=== PATIENT | male | born 1985 | race Caucasian/White ===

== ENCOUNTER 2018-10-23 16:36 | Observation (INO) ==
[2018-10-23] MEDS ORDERED: 0.9 % Sodium Chloride 1,000 ML IVC ONE (18:25)
--- NOTE | 2018-10-23 18:37 | Emergency Department Note ---
Disposition Clinical Impression: Transaminitis Urinary tract infection Qualifiers: Urinary tract infection type: acute cystitis Hematuria presence: with hematuria Qualified Code(s): N30.01 - Acute cystitis with hematuria Disposition: Admitted As Inpatient Condition: Fair Referrals: Alex Mar MD [Primary Care Provider] - Forms: ED Satisfaction Letter, Work/School Release Time of Disposition: 22:28 General Adult HPI - General Chief complaint: ED General Medical Stated complaint: Abrasions,hematuria,fall Time Seen by Provider: 10/23/18 18:03 Source: patient Mode of arrival: wheelchair Limitations: no limitations Nursing Notes Reviewed: Yes Vital Signs Reviewed: Yes - History of Present Illness HPI Narrative: Patient is a 32-year-old male with a past medical history of 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 She states is also having pain in the bilateral flanks. Concern that he has urinary tract infection. The patient states that he also had a fall 1 week ago when he is getting into her vehicle when he fell forward onto his right side and has pain in his right lateral chest wall as well as his lower rib cage. He denies any loss of consciousness. Denies chest pain or shortness of breath. Denies any abdominal pain. The patient states that he has also had penile discharge and his girlfriend was recently in town and they are having unprotected sex. Pain Scale: 8 - Related Data Home Medications Medication Instructions Recorded Confirmed Citalopram [CeleXA] 20 mg PO DAILY 04/20/18 04/20/18 Cyclobenzaprine [Flexeril] 10 mg PO TID PRN 04/20/18 04/20/18 Diphenhydramine HCl [Nighttime 50 mg PO HS PRN 04/20/18 04/20/18 Sleep Aid] Enoxaparin [Lovenox] 40 mg SQ Q12HR 04/20/18 04/20/18 Gabapentin [Neurontin] 600 mg PO TID 04/20/18 04/20/18 Ibuprofen [Ibu] 800 mg PO TID PRN 04/20/18 04/20/18 Oxybutynin Chloride [Ditropan Xl] 5 mg PO DAILY 04/20/18 04/20/18 Sennosides/Docusate Sodium [Senna 1 tab PO HS PRN 04/20/18 04/20/18 Plus] Sildenafil Citrate [Revatio] 20 - 40 mg PO DAILY 04/20/18 04/20/18 risperiDONE [RisperDAL] 1 mg PO QAM 04/20/18 04/20/18 risperiDONE [RisperDAL] 2 mg PO HS 04/20/18 04/20/18 Enoxaparin [Lovenox] 40 mg SQ DAILY 07/10/18 07/10/18 Previous Rx's Medication Instructions Recorded Silvasorb 1 appl TP DAILY tube 04/22/18 Citalopram [CeleXA] 40 mg PO DAILY tablet 05/02/18 OxyCODONE ER (12 HR) [OxyCONTIN] 20 mg PO Q12HR 3 Days #6 tab.er.12h 05/02/18 buPROPion HCl [Zyban] 300 mg PO DAILY #0 05/02/18 Allergies Allergy/AdvReac Type Severity Reaction Status Date / Time No Known Allergies Allergy Verified 04/20/18 10:09 All systems ED: reviewed and negative except as stated. Review of Systems: As Per HPI Constitutional: Reports: chills. Denies: fever, weakness ENT ED: Denies: ear pain, throat pain, congestion, dysphagia Cardiovascular: Denies: chest pain, palpitations, dyspnea on exertion, edema, syncope Respiratory: Denies: cough, dyspnea, wheezes, hemoptysis, sputum production Gastrointestinal: Reports: nausea. Denies: abdominal pain, vomiting, diarrhea, constipation, hematemesis, melena, hematochezia Genitourinary: Reports: dysuria, frequency, discharge. Denies: urgency, hematuria Past Medical History - Past Medical History Attestation: Yes The following information was validated with the patient. Medical history: Reports: asthma, DVT, hepatitis, kidney stones Surgical history: Reports: no surgical history Psychiatric history: Reports: depression, previous psychiatric hospitalization - Social History Smoking Status: Current every day smoker Smokeless Tobacco Status: No Alcohol use: Reports: none Drug use: Reports: none Physical Exam - General Limitations: no limitations - Head Head exam: atraumatic, normocephalic, normal inspection - Eye Eye exam: Present: normal appearance, PERRL, EOMI - ENT ENT exam: normal exam, normal oropharynx, mucous membranes moist - Neck Neck exam: Present: normal inspection, full ROM, trachea midline - Chest Chest inspection: Present: normal inspection, symmetric chest wall rise - Respiratory Respiratory exam: Present: normal lung sounds bilaterally. Absent: respiratory distress, wheezes, accessory muscle use - Cardiovascular Cardiovascular exam: Present: normal rhythm, tachycardia, normal heart sounds, +S1, +S2 - Abdominal Exam Abdominal exam: Present: soft, Non-Tender, normal bowel sounds. Absent: tenderness - Extremities Exam Extremities exam: Present: normal capillary refill, other (2/5 strength in the LLE and 1/5 in the RLE. Normal for patient given history. ). Absent: tenderness, pedal edema - Back Exam Back exam: Present: full ROM, CVA tenderness (R), CVA tenderness (L). Absent: paraspinal tenderness, vertebral tenderness - Neurological Exam Neurological exam: Present: alert, oriented X3 - Psychiatric Psychiatric exam: Present: normal affect, normal mood - Skin Skin exam: Present: warm, dry, intact, normal color, other (small pea sized lump on the right cheek and on the left abdomen that is indurated and not fluctuant. Bilateral lower extremities have no obvious open wounds. Small area of erythema to the right lower ankle at the heel but no signs of ulceration. ) Course Course Narrative: Patient presented for multiple complaints including a recent fall with right- sided pain as well as right ankle injury concern as well as urinary symptoms. After undergoing workup patient was found to have elevated liver enzymes which she then went underwent a CT scan of the abdomen and pelvis for further evaluation of abdominal pathology and that was unremarkable. Patient was also found to have a urinary tract infection. He started on Rocephin in the emergency department. Further discussions with the patient he states that he does have a history of hepatitis C he was told that he was no longer hepatitis C positive. I discussed the patient's case with the hospitalist on-call plan to admit him for further evaluation and treatment of his elevated liver enzymes as well as his UTI. Hospitalist, Dr. Wright agreed to accept the patient and requested that I add on a viral panel to evaluate for hepatitis. I discussed this with the patient patient agrees with plan. Vital Signs Temperature 98.8 F 10/23/18 17:11 Pulse Rate 128 10/23/18 17:11 Respiratory Rate 18 10/23/18 17:11 Blood Pressure 133/80 10/23/18 17:11 O2 Sat by Pulse Oximetry 97 10/23/18 17:11 Temperature 98.8 F 10/23/18 19:51 Pulse Rate 115 10/23/18 21:38 Respiratory Rate 18 10/23/18 19:51 Blood Pressure 140/81 10/23/18 21:38 O2 Sat by Pulse Oximetry 97 10/23/18 19:51 Oxygen Delivery Oxygen Delivery Room Air Medical Decision Making - Medical Records Medical records reviewed: Yes I reviewed the patient's medical records. - Lab Data Lab results reviewed: Yes I reviewed the patient's lab results. Result diagrams: 10/23/18 18:45 10/23/18 18:45 Lab Results 10/23/18 10/23/18 10/23/18 Range/Units 18:45 18:45 18:45 WBC 11.1 (4.3-11.1) K/mcL RBC 5.43 (4.19-5.50) M/mcL Hgb 15.8 (12.9-16.9) g/dL Hct 47.3 (37.5-50.1) % MCV 87.1 (83.0-100.0) fL MCH 29.1 (28.0-33.3) pg MCHC 33.4 (31.6-35.5) g/dL RDW 13.8 (11.5-14.5) % Plt Count 245 (140-400) K/mcL MPV 10.9 (9.4-12.4) fL Immature Gran % 0.5 (0-4) % Seg Neutrophils % 51.2 % Lymphocytes % 31.5 % Monocytes % 14.9 % Eosinophils % 1.3 % Basophils % 0.6 % Neutrophils # 5.7 (1.6-8.9) K/mcL Lymphocytes # 3.5 (0.6-4.6) K/mcL Monocytes # 1.7 H (0.0-1.3) K/mcL Eosinophils # 0.1 (0.0-0.6) K/mcL Basophils # 0.1 (0.0-0.2) K/mcL PT (9.4-12.1) Seconds INR APTT (26.0-36.0) Seconds Sodium 138 (136-145) mEq/L Potassium 3.8 (3.5-5.1) mEq/L Chloride 105 (98-107) mEq/L Carbon Dioxide 25 (23-29) mEq/L BUN 13 (6-20) mg/dL Creatinine 0.99 (0.70-1.30) mg/dL Est GFR ( Amer) > 60 (> 60) Est GFR (Non-Af Amer) > 60 (> 60) BUN/Creatinine Ratio 13 (6-26) Glucose 113 H (70-105) mg/dL Calculated Osmolality 287 (280-300) Lactic Acid 2.1 (0.5-2.2) mmol/L Calcium 9.6 (8.6-10.3) mg/dL Phosphorus 2.7 (2.7-4.5) mg/dL Magnesium 2.1 (1.6-2.6) mg/dL Total Bilirubin 3.4 H (0.3-1.0) mg/dL Direct Bilirubin 2.3 H (0.0-0.2) mg/dL Indirect Bilirubin 1.1 (0.0-1.2) mg/dL AST 1093 H (13-39) Units/L ALT > 500 H (7-52) Units/L Alkaline Phosphatase 170 H (34-104) Units/L Troponin I < 0.03 (< 0.04) ng/mL Serum Total Protein 7.6 (6.4-8.9) g/dL Albumin 4.2 (3.5-5.7) g/dL Globulin 3.4 (2.4-3.5) g/dL Albumin/Globulin Ratio 1.2 (1.1-2.2) Urine Color (Yellow) Urine Clarity (Clear) Urine pH (5.0-8.0) pH Units Ur Specific [place] (1.010-1.025) Urine Protein (Neg-Trace) mg/dL Urine Glucose (UA) (Normal) mg/dL Urine Ketones (Negative) mg/dL Urine Blood (Negative) Urine Nitrite (Negative) Urine Bilirubin (Negative) Urine Urobilinogen (Normal) mg/dL Ur Leukocyte Esterase (Negative) Urine Microscopic RBC (0-3) per hpf Urine Microscopic WBC (0-3) per hpf Ur Squamous Epith Cells (None-Few) per lpf Urine Bacteria (None-Few) per hpf Hyaline Casts (None-Few) per lpf Ur Culture Indicated? (NO) 10/23/18 10/23/18 10/23/18 Range/Units 19:18 22:33 22:33 WBC (4.3-11.1) K/mcL RBC (4.19-5.50) M/mcL Hgb (12.9-16.9) g/dL Hct (37.5-50.1) % MCV (83.0-100.0) fL MCH (28.0-33.3) pg MCHC (31.6-35.5) g/dL RDW (11.5-14.5) % Plt Count (140-400) K/mcL MPV (9.4-12.4) fL Immature Gran % (0-4) % Seg Neutrophils % % Lymphocytes % % Monocytes % % Eosinophils % % Basophils % % Neutrophils # (1.6-8.9) K/mcL Lymphocytes # (0.6-4.6) K/mcL Monocytes # (0.0-1.3) K/mcL Eosinophils # (0.0-0.6) K/mcL Basophils # (0.0-0.2) K/mcL PT 17.6 H (9.4-12.1) Seconds INR 1.6 APTT 39.0 H (26.0-36.0) Seconds Sodium (136-145) mEq/L Potassium (3.5-5.1) mEq/L Chloride (98-107) mEq/L Carbon Dioxide (23-29) mEq/L BUN (6-20) mg/dL Creatinine (0.70-1.30) mg/dL Est GFR ( Amer) (> 60) Est GFR (Non-Af Amer) (> 60) BUN/Creatinine Ratio (6-26) Glucose (70-105) mg/dL Calculated Osmolality (280-300) Lactic Acid 1.0 (0.5-2.2) mmol/L Calcium (8.6-10.3) mg/dL Phosphorus (2.7-4.5) mg/dL Magnesium (1.6-2.6) mg/dL Total Bilirubin (0.3-1.0) mg/dL Direct Bilirubin (0.0-0.2) mg/dL Indirect Bilirubin (0.0-1.2) mg/dL AST (13-39) Units/L ALT (7-52) Units/L Alkaline Phosphatase (34-104) Units/L Troponin I (< 0.04) ng/mL Serum Total Protein (6.4-8.9) g/dL Albumin (3.5-5.7) g/dL Globulin (2.4-3.5) g/dL Albumin/Globulin Ratio (1.1-2.2) Urine Color Dark Yellow (Yellow) Urine Clarity Cloudy A (Clear) Urine pH 5.5 (5.0-8.0) pH Units Ur Specific [place] 1.019 (1.010-1.025) Urine Protein Trace (Neg-Trace) mg/dL Urine Glucose (UA) Normal (Normal) mg/dL Urine Ketones Trace H (Negative) mg/dL Urine Blood Moderate H (Negative) Urine Nitrite Positive A (Negative) Urine Bilirubin Moderate H (Negative) Urine Urobilinogen 4.0 H (Normal) mg/dL Ur Leukocyte Esterase Large H (Negative) Urine Microscopic RBC 5-15 H (0-3) per hpf Urine Microscopic WBC TNTC H (0-3) per hpf Ur Squamous Epith Cells Many H (None-Few) per lpf Urine Bacteria Many H (None-Few) per hpf Hyaline Casts None Seen (None-Few) per lpf Ur Culture Indicated? NO. A (NO) - Radiology Data Radiology results reviewed: Yes I reviewed the patient's radiology results. Chest X-Ray 10/23/18 00:00 IMPRESSION: No acute process. D/ / Nicolas Manley MD / Nicolas Manley MD Interpreting Provider: Nicolas Manley MD Ankle X-Ray 10/23/18 18:41 IMPRESSION: No acute abnormality of the ankle. D/ / Nicolas Manley MD / Nicolas Manley MD Interpreting Provider: Nicolas Manley MD Abdomen/Pelvis CT 10/23/18 20:11 IMPRESSION: 1. No acute intra-abdominal/pelvic abnormality. Normal appendix. 2. Nonspecific mild bilateral inguinal lymphadenopathy progressed since the prior exam. No evidence of body wall cellulitis or abscess. D/ / 10/23/2018 21:48:03 Ed Rose MD / [email or web address] Interpreting Provider: Ed Rose MD
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
[2018-10-23 19:10] LABS: Basophils # 0.1 K/mcL (0.0-0.2); Basophils % 0.6 %; Eosinophils # 0.1 K/mcL (0.0-0.6); Eosinophils % 1.3 %; Hematocrit 47.3 % (37.5-50.1); Hemoglobin 15.8 g/dL (12.9-16.9); Immature Granulocytes % 0.5 % (0-4); Lymphocytes # 3.5 K/mcL (0.6-4.6); Lymphocytes % 31.5 %; Mean Corpuscular HGB Conc 33.4 g/dL (31.6-35.5); Mean Corpuscular Hemoglobin 29.1 pg (28.0-33.3); Mean Corpuscular Volume 87.1 fL (83.0-100.0); Mean Platelet Volume 10.9 fL (9.4-12.4); Monocytes # 1.7 K/mcL (0.0-1.3); Monocytes % 14.9 %; Neutrophils # 5.7 K/mcL (1.6-8.9); Platelet Count 245 K/mcL (140-400); Red Blood Count 5.43 M/mcL (4.19-5.50); Red Cell Distribution Width 13.8 % (11.5-14.5); Segmented Neutrophils % 51.2 %
[2018-10-23 19:27] LABS: Troponin I < 0.03 ng/mL (< 0.04)
[2018-10-23 19:39] LABS: Bilirubin,Urine Moderate (Negative); Blood,Urine Moderate (Negative); Clarity,Urine Cloudy (Clear); Glucose,Urine (UA) Normal (Normal); Ketones,Urine Trace mg/dL (Negative); Leukocyte Esterase,Urine Large (Negative); Nitrite,Urine Positive (Negative); PH,Urine 5.5 pH Units (5.0-8.0); Protein,Urine Trace mg/dL (Neg-Trace); Specific Gravity,Urine 1.019 (1.010-1.025)
[2018-10-23 19:42] LABS: Bacteria,Urine Many per hpf (None-Few); Squamous Epithelial Cell,Urine Many per lpf (None-Few); WBC,Urine TNTC per hpf (0-3)
[2018-10-23 19:43] LABS: Color,Urine Dark Yellow (Yellow)
[2018-10-23 19:52] LABS: Alanine Aminotransferase > 500 Units/L (7-52); Alkaline Phosphatase 170 Units/L (34-104); Aspartate Amino Transferase 1093 Units/L (13-39); BUN/Creatinine Ratio 13 (6-26); Bilirubin,Direct 2.3 mg/dL (0.0-0.2); Bilirubin,Indirect 1.1 mg/dL (0.0-1.2); Bilirubin,Total 3.4 mg/dL (0.3-1.0); Blood Urea Nitrogen 13 mg/dL (6-20); Calcium 9.6 mg/dL (8.6-10.3); Carbon Dioxide 25 mEq/L (23-29); Chloride 105 mEq/L (98-107); Glucose 113 mg/dL (70-105); Magnesium 2.1 mg/dL (1.6-2.6); Osmolality,Calculated 287 (280-300); Phosphorous 2.7 mg/dL (2.7-4.5); Potassium 3.8 mEq/L (3.5-5.1); Sodium 138 mEq/L (136-145); Total Protein 7.6 g/dL (6.4-8.9); eGFR For Non-African Americans > 60 (> 60)
[2018-10-23 19:53] LABS: Albumin 4.2 g/dL (3.5-5.7); Albumin/Globulin Ratio 1.2 (1.1-2.2); Globulin 3.4 g/dL (2.4-3.5)
[2018-10-23] MEDS ORDERED: Ondansetron 4 MG/2 ML VIAL IVP ONE (19:56)
[2018-10-23] MEDS ORDERED: Ketorolac 15 MG/ML VIAL IVP ONE (19:56)
[2018-10-23] MEDS ORDERED: *HR* FentaNYL (PF) 100 MCG/2 ML VIAL IVP ONE (19:57)
[2018-10-23 20:00] LABS: Hyaline Casts,Urine None Seen per lpf (None-Few)
[2018-10-23] MEDS ORDERED: Isovue-370 500 ML INFUS..BTL IV ONE (20:11)
[2018-10-23] MEDS ORDERED: cefTRIAXone 1,000 MG in Water for inj. (sterile) 20 ML 10 ML IVP ONE (21:28)
[2018-10-23 22:58] LABS: INR 1.6; Prothrombin Time 17.6 Seconds (9.4-12.1)
[2018-10-23 23:18] LABS: Hepatitis B Surface Antigen Nonreactive (Nonreactive)
[2018-10-23 23:47] LABS: Hepatitis A Antibody IgM Nonreactive (Nonreactive); Hepatitis B Core IgM Nonreactive (Nonreactive)
[2018-10-24] MEDS ORDERED: Naloxone 0.4 MG/ML INJ IVP PRN (02:16)
[2018-10-24] MEDS: *HR* OxyCODONE/APAP 5/325 TABLET PO PRN ×4 (02:56→22:14)
--- NOTE | 2018-10-24 05:05 | Internal Med History&Physical ---
<Jaren Denton R - Last Filed: 10/24/18 06:52> Date of Encounter: 10/24/18 Time of Encounter: 04:45 Internal Medicine - H&P: HPI Chief complaint: back pain, dark urine Admitted From: Emergency Dept Plans for Post Hospital Care: Home History of present illness: Mr. 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 Presented for evaluation of back pain, abdominal pain and dark foul smelling urine worsening over the past week. Due to paraplegia is unable to evaluate for dysuria, however admits to frequent small volume voids with straight cath as well as worsening bladder spasm over the past week. Associated chills, diaphoresis, nausea without vomiting. Also endorses penile discharge for the past week, has been sexually active recently. Denies IV drug use since 2014, admits to doing a "line of cocaine" last week, denies heavy alcohol consumption. Patient states that abdominal pain is generalized, improved with eating. Lab evaluation reveals normal WBC, elevated LFTs, total and direct bilirubin. CT abdomen and pelvis without acute abnormality. UA suggestive of UTI. Denies chest pain, shortness of breath, dizziness, weakness, change in bowel, or diarrhea. Past Med Surg Social Fam HX - Past Medical History Medical history: asthma, DVT, hepatitis, kidney stones Additional medical history: spinal abcess Psychiatric history: depression, previous psychiatric hospitalization - Past Surgical History Surgical History: orthopedic, other Additional surgical history: spine surgery - Social History Smoking Status: Current every day smoker Smokeless Tobacco Status: Yes (snuff) Alcohol use: rarely Drug use: none - Family History Mother Adopted: No Family Member Ethnicity: Non- Living Status: Still Living Hx Family Cardiac Disorders: Yes Hx Family Respiratory Disorders: No Hx Family Cancer: No Hx Family GI Disorders: No Hx Family Endocrine Disorder: No Hx Family Neuromuscular Disorders: No Hx Family Neurologic Disorders: Yes Hx Family HEENT Disorders: No Hx Family Autoimmune Disorders: No Father Adopted: No Family Member Ethnicity: Non- Living Status: Hx Family Cardiac Disorders: Yes Hx Family Respiratory Disorders: No Hx Family Cancer: No Hx Family GI Disorders: No Hx Family Endocrine Disorder: Yes Hx Family Neuromuscular Disorders: No Hx Family Neurologic Disorders: No Hx Family HEENT Disorders: No Hx Family Autoimmune Disorders: No Internal Medicine - H&P: Meds Cyclobenzaprine [Flexeril] 10 mg PO TID PRN 04/20/18 [History] Diphenhydramine HCl [Nighttime Sleep Aid] 50 mg PO HS PRN 04/20/18 [History] Enoxaparin [Lovenox] 40 mg SQ Q12HR 04/20/18 [History] Ibuprofen [Ibu] 800 mg PO TID PRN 04/20/18 [History] Oxybutynin Chloride [Ditropan Xl] 5 mg PO DAILY 04/20/18 [History] Sildenafil Citrate [Revatio] 20 - 40 mg PO DAILY 04/20/18 [History] Citalopram [CeleXA] 40 mg PO DAILY tablet 05/02/18 [Rx] buPROPion HCl [Zyban] 300 mg PO DAILY #0 05/02/18 [Rx] ARIPiprazole [Abilify] 10 mg PO DAILY 10/24/18 [History] Gabapentin [Neurontin] 900 mg PO TID 10/24/18 [History] HydrOXYzine Pamoate [Vistaril] 50 mg PO 10/24/18 [History] OxyCODONE/APAP 5/325 [Percocet 5/325 MG] 1 each PO Q6HR 10/24/18 [History] Allergy/AdvReac Type Severity Reaction Status Date / Time No Known Allergies Allergy Verified 04/20/18 10:09 All Systems PM: A 10-system review of systems was performed and is negative for pertinent findings except as documented above in the HPI. - Constitutional Constitutional: chills, excessive sweating, fever(s), no weakness - EENT Eyes: no change in vision, no diplopia Nose, mouth and throat: no dysphagia, no epistaxis, no neck pain - Cardiovascular Cardiovascular ROS IM: no chest pain, no dyspnea, no edema, no lightheadedness - Respiratory Respiratory: no cough, no dyspnea, no hemoptysis - Gastrointestinal Gastrointestinal: abdominal pain, nausea, no change in stool character, no diarrhea, no hematemesis, no hematochezia, no melena, no vomiting - Genitourinary Genitourinary ROS male: flank pain, urinary frequency, urinary incontinence, no dysuria - Musculoskeletal Musculoskeletal ROS IM: back pain - Integumentary Integumentary IM: non-healing lesions (of bilateral lower extremities) - Neurological Neurological ROS: no confusion, no dizziness, no weakness - Psychiatric Psychiatric: no anxiety, no depression, no suicidal ideation - Endocrine Endocrine IM: excessive sweating - Hematologic/Lymphatic Hematologic/Lymphatic: no easy bleeding, no easy bruising - Constitutional Vitals: Temp Pulse Resp BP Pulse Ox 98.1 F 93 16 113/80 98 10/24/18 03:56 10/24/18 03:56 10/24/18 03:56 10/24/18 03:56 10/24/18 03:56 Exam: General: Supine in bed, no apparent distress HEENT: atraumatic, pupils perll with EOMI, moist mucous membranes, anicteric sclera Neck: soft, no lymphadenopathy Cardio: regular rate and rhythm without murmurs, rubs, or gallops Respiratory: clear to auscultation bilateral, no crackles, wheeze, or rhonchi Abdomen: Obese, soft, Diffuse tenderness worse at RUQ/LUQ, no rebound or rigidity, no guarding Extremities: Healing ulcers of bilateral lower extremities. open lesion of right lateral malleolus with clean and dry dressing, no surround erythema or swelling MSK: significant lower extremity weakness, per patient is at baseline, upper extremity strength 5/5 Neuro: no focal deficits, cranial nerves intact, alert and oriented to person, place, and situation Psych: no suicidal ideation, appropriate mood and affect. Internal Med - H&P Results - Labs CBC & Chem 7: 10/24/18 04:07 10/24/18 04:07 Labs: Short CBC 10/23/18 Range/Units 18:45 WBC 11.1 (4.3-11.1) K/mcL Hgb 15.8 (12.9-16.9) g/dL Hct 47.3 (37.5-50.1) % Plt Count 245 (140-400) K/mcL Neutrophils # 5.7 (1.6-8.9) K/mcL BMP 10/23/18 18:45 Sodium 138 Potassium 3.8 Chloride 105 Carbon Dioxide 25 BUN 13 Creatinine 0.99 Glucose 113 H Calcium 9.6 Cardiac Enzymes 10/23/18 Range/Units 18:45 Troponin I < 0.03 (< 0.04) ng/mL Liver Function 10/23/18 Range/Units 18:45 Total Bilirubin 3.4 H (0.3-1.0) mg/dL Direct Bilirubin 2.3 H (0.0-0.2) mg/dL AST 1093 H (13-39) Units/L ALT > 500 H (7-52) Units/L Alkaline Phosphatase 170 H (34-104) Units/L Albumin 4.2 (3.5-5.7) g/dL Urine 10/23/18 Range/Units 19:18 Urine Color Dark Yellow (Yellow) Urine Clarity Cloudy A (Clear) Urine pH 5.5 (5.0-8.0) pH Units Ur Specific [place] 1.019 (1.010-1.025) Urine Protein Trace (Neg-Trace) mg/dL Urine Glucose (UA) Normal (Normal) mg/dL - Impressions ITS Impressions Chest X-Ray 10/23/18 00:00 IMPRESSION: No acute process. D/ / Nicolas Manley MD / Nicolas Manley MD Interpreting Provider: Nicolas Manley MD Ankle X-Ray 10/23/18 18:41 IMPRESSION: No acute abnormality of the ankle. D/ / Nicolas Manley MD / Nicolas Manley MD Interpreting Provider: Nicolas Manley MD Abdomen/Pelvis CT 10/23/18 20:11 IMPRESSION: 1. No acute intra-abdominal/pelvic abnormality. Normal appendix. 2. Nonspecific mild bilateral inguinal lymphadenopathy progressed since the prior exam. No evidence of body wall cellulitis or abscess. D/ / 10/23/2018 21:48:03 Ed Rose MD / jamee Interpreting Provider: Ed Rose MD - Assessment and plan (1) Acute cystitis with hematuria Current Visit: Yes Status: Acute Assessment and plan: Paraplegic with urinary retention requiring frequent straight cath Symptoms and UA consistent with UTI Lactate and WBC within normal limits, Afebrile Penile discharge Plan: Continue antibiotic therapy with IV Rocephin Urine culture Straight cath prn for urinary retention GC/chlamydia pcr (2) Transaminitis Current Visit: Yes Status: Acute Assessment and plan: Generalized abdominal pain and nausea Elevated LFTs, total and direct bilirubin CT abdomen/pelvis without acute findings Plan: Hep a/b negative Hep C pending Order RUQ US Consider GI consultation pending RUQ US and AM labs (3) Ulcer of right heel and midfoot with fat layer exposed Current Visit: No Status: Acute Assessment and plan: Healing ulcer of right foot, lateral maleolus Plan Consult to wound care (4) Urinary retention Current Visit: Yes Status: Acute Assessment and plan: Straight cath prn for urinary retention (5) Penile discharge Current Visit: Yes Status: Acute Assessment and plan: Patient on Rocephin for UTI Will obtain gonorrhea and chlamydia testing treatment if indicated (6) DVT prophylaxis Current Visit: Yes Status: Acute Assessment and plan: SubQ lovenox - Time Spent With Patient Total time spent is greater than 50% in coordination of care (as documented) at patient's floor/unit and/or counseling patient: <KyleMax D - Last Filed: 10/24/18 07:23> Date of Encounter: 10/24/18 Internal Medicine - H&P: HPI History of present illness: Mr. Vick is a 32 year old male All Systems PM: A 10-system review of systems was performed and is negative for pertinent findings except as documented above in the HPI. - Constitutional Vitals: Temp Pulse Resp BP Pulse Ox 98.1 F 93 16 113/80 98 10/24/18 03:56 10/24/18 03:56 10/24/18 03:56 10/24/18 03:56 10/24/18 03:56 Internal Med - H&P Results - Labs CBC & Chem 7: 10/24/18 04:07 10/24/18 04:07 Labs: Short CBC 10/23/18 10/24/18 Range/Units 18:45 04:07 WBC 11.1 9.5 (4.3-11.1) K/mcL Hgb 15.8 14.1 D (12.9-16.9) g/dL Hct 47.3 42.7 (37.5-50.1) % Plt Count 245 226 (140-400) K/mcL Neutrophils # 5.7 (1.6-8.9) K/mcL BMP 10/23/18 10/24/18 18:45 04:07 Sodium 138 139 Potassium 3.8 3.5 Chloride 105 107 Carbon Dioxide 25 23 BUN 13 13 Creatinine 0.99 0.86 Glucose 113 H 117 H Calcium 9.6 8.9 Cardiac Enzymes 10/23/18 Range/Units 18:45 Troponin I < 0.03 (< 0.04) ng/mL Liver Function 10/23/18 10/24/18 Range/Units 18:45 04:07 Total Bilirubin 3.4 H 3.1 H (0.3-1.0) mg/dL Direct Bilirubin 2.3 H (0.0-0.2) mg/dL AST 1093 H 751 H (13-39) Units/L ALT > 500 H > 500 H (7-52) Units/L Alkaline Phosphatase 170 H 145 H (34-104) Units/L Albumin 4.2 3.6 (3.5-5.7) g/dL Urine 10/23/18 Range/Units 19:18 Urine Color Dark Yellow (Yellow) Urine Clarity Cloudy A (Clear) Urine pH 5.5 (5.0-8.0) pH Units Ur Specific [place] 1.019 (1.010-1.025) Urine Protein Trace (Neg-Trace) mg/dL Urine Glucose (UA) Normal (Normal) mg/dL - Impressions ITS Impressions Chest X-Ray 10/23/18 00:00 IMPRESSION: No acute process. D/ / Nicolas Manley MD / Nicolas Manley MD Interpreting Provider: Nicolas Manley MD Ankle X-Ray 10/23/18 18:41 IMPRESSION: No acute abnormality of the ankle. D/ / Nicolas Manley MD / Nicolas Manley MD Interpreting Provider: Nicolas Manley MD Abdomen/Pelvis CT 10/23/18 20:11 IMPRESSION: 1. No acute intra-abdominal/pelvic abnormality. Normal appendix. 2. Nonspecific mild bilateral inguinal lymphadenopathy progressed since the prior exam. No evidence of body wall cellulitis or abscess. D/ / 10/23/2018 21:48:03 Ed Rose MD / jamee Interpreting Provider: Ed Rose MD - Time Spent With Patient Total time spent is greater than 50% in coordination of care (as documented) at patient's floor/unit and/or counseling patient: - Attending Attestation I saw and evaluated the patient. I reviewed the residents note, performed my own physical examination and agree with findings and plan as documented in the residents note. Patient seen and examin ed on 10/24/18. Patient has history of paraplegia, secondary to epidural abscess. Will treat with antibiotics, follow up culture and PCRs. Patient also has elevated liver enzymes, history of hep C. Will get right upper quadrant ultrasound, consider GI consultation pending those results.
[2018-10-24 05:23] LABS: Hematocrit 42.7 % (37.5-50.1); Hemoglobin 14.1 g/dL (12.9-16.9); Mean Corpuscular Hemoglobin 29.1 pg (28.0-33.3); Mean Corpuscular Volume 88.2 fL (83.0-100.0); Mean Platelet Volume 11.2 fL (9.4-12.4); Platelet Count 226 K/mcL (140-400); Red Blood Count 4.84 M/mcL (4.19-5.50); Red Cell Distribution Width 13.7 % (11.5-14.5)
[2018-10-24] MEDS ORDERED: Ondansetron 4 MG/2 ML VIAL ONE (05:38)
[2018-10-24] MEDS: *HR* Enoxaparin 40 MG/0.4 ML SYRINGE SQ SCH ×2 (05:45→18:55)
[2018-10-24] MEDS: Ondansetron 4 MG/2 ML VIAL IVP PRN (05:45)
[2018-10-24 05:46] LABS: Alanine Aminotransferase > 500 Units/L (7-52); Albumin 3.6 g/dL (3.5-5.7); Albumin/Globulin Ratio 1.2 (1.1-2.2); Alkaline Phosphatase 145 Units/L (34-104); Aspartate Amino Transferase 751 Units/L (13-39); BUN/Creatinine Ratio 15 (6-26); Bilirubin,Total 3.1 mg/dL (0.3-1.0); Blood Urea Nitrogen 13 mg/dL (6-20); Calcium 8.9 mg/dL (8.6-10.3); Carbon Dioxide 23 mEq/L (23-29); Chloride 107 mEq/L (98-107); Glucose 117 mg/dL (70-105); Osmolality,Calculated 289 (280-300); Potassium 3.5 mEq/L (3.5-5.1); Sodium 139 mEq/L (136-145); Total Protein 6.6 g/dL (6.4-8.9); eGFR For Non-African Americans > 60 (> 60)
[2018-10-24] MEDS ORDERED: *HR* OxyCODONE/APAP 5/325 TABLET PO SCH (06:00)
[2018-10-24 06:14] LABS: Hepatitis C Virus Antibody Reactive (Nonreactive)
[2018-10-24] MEDS: Ketorolac 15 MG/ML VIAL IVP PRN (06:30)
[2018-10-24 08:32] LABS: Chlamydia Trachomatis DNA Ur NOT DETECTED (Not Detect)
[2018-10-24] MEDS: cefTRIAXone 1,000 MG in Water for inj. (sterile) 20 ML 10 ML IVP SCH (09:43)
[2018-10-24] MEDS: Gabapentin 300 MG CAPSULE PO SCH ×3 (09:44→22:14)
[2018-10-24] MEDS: ARIPiprazole 10 MG TABLET PO SCH (09:45)
--- NOTE | 2018-10-24 11:21 | Event Note ---
Date of Encounter: 10/24/18 Time of Encounter: 11:19 72-year-old gentleman with past medical history of IV drug abuse and paraplegia secondary to spinal abscess presented with abdominal pain. Both revealed UTI, transaminase and a positive HCV. Patient started on Rocephin IV. GI consulted.
--- NOTE | 2018-10-24 14:54 | Gastroenterology Consult Note ---
<Marshall Pearl - Last Filed: 10/24/18 14:56> Date of Encounter: 10/24/18 Time of Encounter: 14:00 - Assessment and plan (1) Ischemic hepatitis Current Visit: Yes Status: Acute Assessment and plan: May be due to UTI/dehydration CT ab/pelvis was negative for liver or gallbladder abnormalities T. bili improving - 3.1, 3.4 on admission Alk Phos improving - 145, 170 on admission AST improving - 751, 1093 on admission ALT >500, same on admission Will recheck LFTs in morning Positive screen for hepatitis C, this doesn't rule out that patient may have cleared virus without treatment Patient had undetectable viral load in Jun 2018 - will order another viral load Will recheck PT/INR in morning Will check labs tomorrow and make recommendations based on results - Time Spent With Patient Total time spent is greater than 50% in coordination of care (as documented) at patient's floor/unit and/or counseling patient: GI History of Present Illness - Data of Consult Consult date: 10/24/18 Requesting Physician: Max Wright MD - Consult Narrative Reason for consult: Elevated LFTs History of present illness: Mr. Vick is a 32 year old male with PMHx of paraplegia s/p spinal abscess, IV drug use, hepatitis C presented to [facility] for increased urinary frequency and dark urine. GI was consulted due to elevated transaminases and positive hepatitis C antibody screen during workup. Patient had abdominal CT which showed normal liver and gallbladder, but positive for increased bilateral inguinal lymphadenopathy from previous study. Patient's UA was suspicious for UTI, and he was started on antibiotics. Patient seen and examined today. Patient admits to mild right upper quadrant pain that started last week. He states the pain sometimes radiates diffusely over his abdomen. He denies nausea, vomiting, changes in bowel habits. Patient in incontinent due to his paraplegic state. He states he was diagnosed with Hepatitis C in 2016 during a screening test for a vivitrol trial. He never followed up with anyone since he wasn't having any symptoms at the time. He has a history of IV drug use and spinal abscess. He also states the mother of his children has hepatitis C, and he was recently intimate with her. Patient had an undetectable Hep C viral load in June 2018. He admits to heavy alcohol use in his late teens and early 20s, and heavy alcohol use in 2017 with 3-5 beers per day. Patient denies recent alcohol use. He admits to smoking history of 3 PPD from 1820-9112, and 1/2 PPD since then. Patient denies recent drug use, and states he hasn't done any drugs in "several months." He denies ever having a colonoscopy or endoscopy. Past Med Surg Social Fam HX - Past Medical History Medical history: asthma, DVT, hepatitis, kidney stones Additional medical history: spinal abcess Psychiatric history: depression, previous psychiatric hospitalization - Past Surgical History Surgical History: orthopedic, other Additional surgical history: spine surgery - Social History Smoking Status: Current every day smoker Smokeless Tobacco Status: Yes (snuff) Alcohol use: rarely Drug use: none - Family History Father Adopted: No Family Member Ethnicity: Non- Living Status: Hx Family Cardiac Disorders: Yes Hx Family Respiratory Disorders: No Hx Family Cancer: No Hx Family GI Disorders: No Hx Family Endocrine Disorder: Yes Hx Family Neuromuscular Disorders: No Hx Family Neurologic Disorders: No Hx Family HEENT Disorders: No Hx Family Autoimmune Disorders: No Mother Adopted: No Family Member Ethnicity: Non- Living Status: Still Living Hx Family Cardiac Disorders: Yes Hx Family Respiratory Disorders: No Hx Family Cancer: No Hx Family GI Disorders: No Hx Family Endocrine Disorder: No Hx Family Neuromuscular Disorders: No Hx Family Neurologic Disorders: Yes Hx Family HEENT Disorders: No Hx Family Autoimmune Disorders: No - Constitutional Vitals: Temp Pulse Resp BP Pulse Ox 98.2 F 86 16 99/55 100 10/24/18 12:11 10/24/18 12:11 10/24/18 12:11 10/24/18 12:11 10/24/18 12:11 General appearance: Present: A&O X 3, no acute distress - Respiratory Respiratory exam: Present: CTAB - Cardiovascular Cardiovascular exam: Present: RRR - GI/Abdominal GI/Abdominal exam: Present: normal bowel sounds, soft, tenderness, no peritoneal signs. Absent: distended Additional comments: right upper quadrant - Neurological Exam Additional comments: Diminished sensation in LE bilaterlly (more sensation in left leg), strength 3/5 in left leg, minimal strength in right leg - Psychiatric Psychiatric exam: Present: normal affect, normal mood Results - Labs CBC & Chem 7: 10/24/18 04:07 10/24/18 04:07 Labs: Last Result Calcium 8.9 mg/dL (8.6-10.3) 10/24/18 04:07 Troponin I < 0.03 ng/mL (< 0.04) 10/23/18 18:45 Entire Visit Hgb 14.1 g/dL (12.9-16.9) D 10/24/18 04:07 Hct 42.7 % (37.5-50.1) 10/24/18 04:07 PT 17.6 Seconds (9.4-12.1) H 10/23/18 22:33 Total Bilirubin 3.1 mg/dL (0.3-1.0) H 10/24/18 04:07 AST 751 Units/L (13-39) H 10/24/18 04:07 ALT > 500 Units/L (7-52) H 10/24/18 04:07 - ABG ABG results: PT/INR, D-dimer PT 17.6 Seconds (9.4-12.1) H 10/23/18 22:33 - Impressions Impressions Chest X-Ray 10/23/18 00:00 IMPRESSION: No acute process. D/ / Nicolas Manley MD / Nicolas Manley MD Interpreting Provider: Nicolas Manley MD Ankle X-Ray 10/23/18 18:41 IMPRESSION: No acute abnormality of the ankle. D/ / Nicolas Manley MD / Nicolas Manley MD Interpreting Provider: Nicolas Manley MD Abdomen/Pelvis CT 10/23/18 20:11 IMPRESSION: 1. No acute intra-abdominal/pelvic abnormality. Normal appendix. 2. Nonspecific mild bilateral inguinal lymphadenopathy progressed since the prior exam. No evidence of body wall cellulitis or abscess. D/ / 10/23/2018 21:48:03 Ed Rose MD / jamee Interpreting Provider: Ed Rose MD Consult Discharge Plan - Plan Referrals: Alex Mar MD [Primary Care Provider] - 11/02/18 2:00 pm () <Edgardo Cotto - Last Filed: 10/27/18 06:03> Date of Encounter: 10/24/18 - Time Spent With Patient Total time spent is greater than 50% in coordination of care (as documented) at patient's floor/unit and/or counseling patient: GI History of Present Illness - Data of Consult Requesting Physician: Max Wright MD - Consult Narrative History of present illness: Mr. Vick is a 32 year old male - Constitutional Vitals: Temp Pulse Resp BP Pulse Ox 98.0 F 79 16 128/71 96 10/27/18 03:19 10/27/18 03:19 10/27/18 03:19 10/27/18 03:19 10/27/18 03:19 Results - Labs CBC & Chem 7: 10/25/18 08:56 10/25/18 08:56 Labs: Last Result Calcium 8.6 mg/dL (8.6-10.3) 10/25/18 08:56 Troponin I < 0.03 ng/mL (< 0.04) 10/23/18 18:45 Entire Visit Hgb 13.6 g/dL (12.9-16.9) 10/25/18 08:56 Hct 41.5 % (37.5-50.1) 10/25/18 08:56 PT 14.1 Seconds (9.4-12.1) H 10/25/18 03:46 Total Bilirubin 1.9 mg/dL (0.3-1.0) H 10/26/18 10:27 AST 122 Units/L (13-39) H 10/26/18 10:27 ALT > 500 Units/L (7-52) H 10/26/18 10:27 - ABG ABG results: PT/INR, D-dimer PT 14.1 Seconds (9.4-12.1) H 10/25/18 03:46 - Attending Attestation I examined this patient and my medical decision-making was reviewed with the Resident Physician. I agree with the documented findings, disposition and treat ment plan as described except to the extent set forth below.
[2018-10-24] MEDS: Gentamicin Oint 15 GM TUBE TP SCH (16:20)
[2018-10-25 05:12] LABS: INR 1.3; Prothrombin Time 14.1 Seconds (9.4-12.1)
[2018-10-25 05:19] LABS: Alanine Aminotransferase > 500 Units/L (7-52); Albumin 3.6 g/dL (3.5-5.7); Albumin/Globulin Ratio 1.3 (1.1-2.2); Alkaline Phosphatase 151 Units/L (34-104); Aspartate Amino Transferase 394 Units/L (13-39); Bilirubin,Indirect 0.7 mg/dL (0.0-1.2); Bilirubin,Total 2.7 mg/dL (0.3-1.0); Globulin 2.7 g/dL (2.4-3.5); Total Protein 6.3 g/dL (6.4-8.9)
[2018-10-25] MEDS: *HR* OxyCODONE/APAP 5/325 TABLET PO PRN ×3 (05:51→21:44)
[2018-10-25] MEDS: *HR* Enoxaparin 40 MG/0.4 ML SYRINGE SQ SCH ×2 (05:52→18:07)
[2018-10-25] MEDS: Gentamicin Oint 15 GM TUBE TP SCH (07:59)
[2018-10-25] MEDS: ARIPiprazole 10 MG TABLET PO SCH (08:00)
[2018-10-25] MEDS: cefTRIAXone 1,000 MG in Water for inj. (sterile) 20 ML 10 ML IVP SCH (08:00)
[2018-10-25] MEDS: Gabapentin 300 MG CAPSULE PO SCH ×3 (08:00→21:43)
[2018-10-25 09:16] LABS: Basophils # 0.1 K/mcL (0.0-0.2); Basophils % 0.6 %; Eosinophils # 0.4 K/mcL (0.0-0.6); Eosinophils % 4.5 %; Hematocrit 41.5 % (37.5-50.1); Hemoglobin 13.6 g/dL (12.9-16.9); Immature Granulocytes % 0.2 % (0-4); Lymphocytes # 4.1 K/mcL (0.6-4.6); Lymphocytes % 49.4 %; Mean Corpuscular HGB Conc 32.8 g/dL (31.6-35.5); Mean Corpuscular Hemoglobin 29.5 pg (28.0-33.3); Mean Platelet Volume 10.9 fL (9.4-12.4); Monocytes # 1.2 K/mcL (0.0-1.3); Monocytes % 14.1 %; Neutrophils # 2.6 K/mcL (1.6-8.9); Platelet Count 211 K/mcL (140-400); Red Blood Count 4.61 M/mcL (4.19-5.50); Red Cell Distribution Width 14.5 % (11.5-14.5); Segmented Neutrophils % 31.2 %
[2018-10-25 09:38] LABS: BUN/Creatinine Ratio 14 (6-26); Blood Urea Nitrogen 10 mg/dL (6-20); Calcium 8.6 mg/dL (8.6-10.3); Carbon Dioxide 27 mEq/L (23-29); Chloride 107 mEq/L (98-107); Glucose 91 mg/dL (70-105); Osmolality,Calculated 287 (280-300); Potassium 4.1 mEq/L (3.5-5.1); Sodium 139 mEq/L (136-145); eGFR For Non-African Americans > 60 (> 60)
--- NOTE | 2018-10-25 15:28 | Gastroenterology Progress Note ---
<Marshall Pearl - Last Filed: 10/25/18 15:22> Date of Encounter: 10/25/18 Time of Encounter: 09:30 - Assessment and plan (1) Ischemic hepatitis Current Visit: Yes Status: Acute Assessment and plan: May be due to UTI/dehydration CT ab/pelvis was negative for liver or gallbladder abnormalities T. bili improving - 2.7, 3.4 on admission Alk Phos improving - 151, 170 on admission AST improving - 394, 1093 on admission ALT >500, same on admission Positive screen for hepatitis C, this doesn't rule out that patient may have cleared virus without treatment Patient had undetectable viral load in Jun 2018 - ordered repeat viral load PT 14.1, INR 1.3 Patient's labs are normalizing, and he is tolerating oral intake - may sign off tomorrow if patient continues to improve - Time Spent With Patient Total time spent is greater than 50% in coordination of care (as documented) at patient's floor/unit and/or counseling patient: - Subjective Interval history: Patient seen and examined this morning. He is sitting in bed comfortably. Patient still has some right upper quadrant abdominal pain, but states it is improved from yesterday. He denies nausea, vomiting, changes in bowel habits. He tolerated regular diet. He denies CP, SOB, fevers/chills. - Constitutional Vitals: Temp Pulse Resp BP Pulse Ox 97.6 F 71 16 135/68 97 10/25/18 12:15 10/25/18 12:15 10/25/18 12:15 10/25/18 12:15 10/25/18 12:15 General appearance: Present: A&O X 3, no acute distress - Respiratory Respiratory exam: Present: CTAB - Cardiovascular Cardiovascular exam: Present: RRR - GI/Abdominal GI/Abdominal exam: Present: normal bowel sounds, soft, tenderness (minimally tender in RUQ), no peritoneal signs. Absent: distended, rebound - Neurological Exam Additional comments: Diminished sensation in LE bilaterlly (more sensation in left leg), strength 3/5 in left leg, minimal strength in right leg - Skin Skin exam: Present: normal color Results - Labs CBC & Chem 7: 10/25/18 08:56 10/25/18 08:56 Labs: Last Result Calcium 8.6 mg/dL (8.6-10.3) 10/25/18 08:56 Troponin I < 0.03 ng/mL (< 0.04) 10/23/18 18:45 Entire Visit Hgb 13.6 g/dL (12.9-16.9) 10/25/18 08:56 Hct 41.5 % (37.5-50.1) 10/25/18 08:56 PT 14.1 Seconds (9.4-12.1) H 10/25/18 03:46 Total Bilirubin 2.7 mg/dL (0.3-1.0) H 10/25/18 03:46 AST 394 Units/L (13-39) H 10/25/18 03:46 ALT > 500 Units/L (7-52) H 10/25/18 03:46 - ABG ABG results: PT/INR, D-dimer PT 14.1 Seconds (9.4-12.1) H 10/25/18 03:46 Consult Discharge Plan - Plan Referrals: Alex Mar MD [Primary Care Provider] - 11/02/18 2:00 pm () <Edgardo Cotto - Last Filed: 10/27/18 05:56> Date of Encounter: 10/25/18 - Time Spent With Patient Total time spent is greater than 50% in coordination of care (as documented) at patient's floor/unit and/or counseling patient: - Constitutional Vitals: Temp Pulse Resp BP Pulse Ox 98.0 F 79 16 128/71 96 10/27/18 03:19 10/27/18 03:19 10/27/18 03:19 10/27/18 03:19 10/27/18 03:19 Results - Labs CBC & Chem 7: 10/25/18 08:56 10/25/18 08:56 Labs: Last Result Calcium 8.6 mg/dL (8.6-10.3) 10/25/18 08:56 Troponin I < 0.03 ng/mL (< 0.04) 10/23/18 18:45 Entire Visit Hgb 13.6 g/dL (12.9-16.9) 10/25/18 08:56 Hct 41.5 % (37.5-50.1) 10/25/18 08:56 PT 14.1 Seconds (9.4-12.1) H 10/25/18 03:46 Total Bilirubin 1.9 mg/dL (0.3-1.0) H 10/26/18 10:27 AST 122 Units/L (13-39) H 10/26/18 10:27 ALT > 500 Units/L (7-52) H 10/26/18 10:27 - ABG ABG results: PT/INR, D-dimer PT 14.1 Seconds (9.4-12.1) H 10/25/18 03:46 - Attending Attestation I examined this patient and my medical decision-making was reviewed with the Re sident Physician. I agree with the documented findings, disposition and treatment plan as described except to the extent set forth below.
--- NOTE | 2018-10-25 18:50 | Internal Med Progress Note ---
Hospitalist Progress Note - Encounter Date of Encounter: 10/25/18 Time of Encounter: 10:00 - Subjective Interval History: Patient was seen and examined at bedside. Currently denies any pain or discomfort I did review treatment plan with the patient who verbalized understanding. - Exam Vitals: Temp Pulse Resp BP Pulse Ox 97.9 F 77 16 155/69 98 10/25/18 15:21 10/25/18 15:21 10/25/18 15:21 10/25/18 15:21 10/25/18 15:21 Exam: General: Supine in bed, no apparent distress HEENT: atraumatic, pupils perll with EOMI, moist mucous membranes, anicteric sclera Neck: soft, no lymphadenopathy Cardio: regular rate and rhythm without murmurs, rubs, or gallops Respiratory: clear to auscultation bilateral, no crackles, wheeze, or rhonchi Abdomen: Obese, soft, tenderness at RUQ/LUQ, no rebound or rigidity, no guarding Extremities: Healing ulcers of bilateral lower extremities. open lesion of right lateral malleolus with clean and dry dressing, no surround erythema or swelling MSK: significant lower extremity weakness, per patient is at baseline, upper extremity strength 5/5 Neuro: no focal deficits, cranial nerves intact, alert and oriented to person, place, and situation Psych: no suicidal ideation, appropriate mood and affect. 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 Symptoms and UA consistent with UTI Lactate and WBC within normal limits, Afebrile Penile discharge Plan: Continue antibiotic therapy with IV Rocephin Urine culture Straight cath prn for urinary retention GC/chlamydia pcr 10/25/2018 Continue with IV Rocephin-urine culture luminary gram-negative patito GC chlamydia negative (2) DVT prophylaxis Current Visit: Yes Status: Acute Assessment and Plan: SubQ lovenox (3) Ulcer of right heel and midfoot with fat layer exposed Current Visit: No Status: Acute Assessment and Plan: Healing ulcer of right foot, lateral maleolus Plan Consult to wound care 10/25/2018 Continue with current wound care (4) Transaminitis Current Visit: Yes Status: Acute Assessment and Plan: Generalized abdominal pain and nausea Elevated LFTs, total and direct bilirubin CT abdomen/pelvis without acute findings Plan: Hep a/b negative Hep C pending Order RUQ US Consider GI consultation pending RUQ US and AM labs 10/25/2018 LFTs trending down Hepatitis AB negative Hepatitis C positive had undetectable viral load in June 2018-repeat viral load which is pending-GI has been consulted and appreciate recommendations CT of abdomen and pelvis negative for liver or gallbladder abnormalities (5) Urinary retention Current Visit: Yes Status: Acute Assessment and Plan: Straight cath prn for urinary retention (6) Penile discharge Current Visit: Yes Status: Acute Assessment and Plan: Patient on Rocephin for UTI Will obtain gonorrhea and chlamydia testing treatment if indicated 10/25/2018 GC Chlamydia negative continue with Rocephin for UTI coverage - Time Spent with Patient Total time spent is greater than 50% in coordination of care (as documented) at patient's floor/unit and/or counseling patient: Internal Medicine: Result - Labs CBC & Chem 7: 10/25/18 08:56 10/25/18 08:56 Labs: Short CBC 10/25/18 Range/Units 08:56 WBC 8.2 (4.3-11.1) K/mcL Hgb 13.6 (12.9-16.9) g/dL Hct 41.5 (37.5-50.1) % Plt Count 211 (140-400) K/mcL Neutrophils # 2.6 (1.6-8.9) K/mcL BMP 10/25/18 08:56 Sodium 139 Potassium 4.1 Chloride 107 Carbon Dioxide 27 BUN 10 Creatinine 0.72 Glucose 91 Calcium 8.6 Liver Function 10/25/18 Range/Units 03:46 Total Bilirubin 2.7 H (0.3-1.0) mg/dL Direct Bilirubin 2.0 H (0.0-0.2) mg/dL AST 394 H (13-39) Units/L ALT > 500 H (7-52) Units/L Alkaline Phosphatase 151 H (34-104) Units/L Albumin 3.6 (3.5-5.7) g/dL - ABG Interpretation ABG results: PT/INR, D-dimer PT 14.1 Seconds (9.4-12.1) H 10/25/18 03:46 Consult Discharge Plan - Plan Referrals: Alex Mar MD [Primary Care Provider] - 11/02/18 2:00 pm ()
[2018-10-26] MEDS: *HR* OxyCODONE/APAP 5/325 TABLET PO PRN ×3 (05:29→19:52)
[2018-10-26] MEDS: *HR* Enoxaparin 40 MG/0.4 ML SYRINGE SQ SCH ×2 (05:29→17:52)
[2018-10-26] MEDS: ARIPiprazole 10 MG TABLET PO SCH (11:09)
[2018-10-26] MEDS: Gabapentin 300 MG CAPSULE PO SCH ×3 (11:09→20:01)
[2018-10-26] MEDS: cefTRIAXone 1,000 MG in Water for inj. (sterile) 20 ML 10 ML IVP SCH (11:10)
[2018-10-26 11:39] LABS: Alanine Aminotransferase > 500 Units/L (7-52); Albumin 3.4 g/dL (3.5-5.7); Albumin/Globulin Ratio 1.2 (1.1-2.2); Alkaline Phosphatase 159 Units/L (34-104); Aspartate Amino Transferase 122 Units/L (13-39); Bilirubin,Direct 1.2 mg/dL (0.0-0.2); Bilirubin,Indirect 0.7 mg/dL (0.0-1.2); Bilirubin,Total 1.9 mg/dL (0.3-1.0); Globulin 2.8 g/dL (2.4-3.5); Total Protein 6.2 g/dL (6.4-8.9)
[2018-10-26] MEDS: Gentamicin Oint 15 GM TUBE TP SCH (11:54)
--- NOTE | 2018-10-26 12:32 | Gastroenterology Progress Note ---
<Marshall Pearl - Last Filed: 10/26/18 12:30> Date of Encounter: 10/26/18 Time of Encounter: 11:30 - Assessment and plan (1) Ischemic hepatitis Current Visit: Yes Status: Acute Assessment and plan: May be due to UTI/dehydration CT ab/pelvis was negative for liver or gallbladder abnormalities T. bili improving - 2.7 > 1.9 today Alk Phos - 151 > 159 today AST improving - 394 > 122 today ALT >500, same on admission Positive screen for hepatitis C, this doesn't rule out that patient may have cleared virus without treatment Patient had undetectable viral load in Jun 2018 - ordered repeat viral load PT improving 14.1, 17.6 on admission INR 1.3 Patient's labs are normalizing, he is improving clinically, and he is tolerating oral intake - patient ok to be discharged from GI standpoint GI will sign off at this time, thank you for the consult - Time Spent With Patient Total time spent is greater than 50% in coordination of care (as documented) at patient's floor/unit and/or counseling patient: - Subjective Interval history: Patient seen and examined today. He states he still has some right upper quadrant abdominal pain and nausea, but they are improved since from yesterday. He denies fevers/chills, CP, SOB, numbness/tingling. No acute events overnight. - Constitutional Vitals: Temp Pulse Resp BP Pulse Ox 97.9 F 98 18 132/77 96 10/26/18 11:15 10/26/18 11:15 10/26/18 11:15 10/26/18 11:15 10/26/18 11:44 General appearance: Present: A&O X 3, no acute distress - Respiratory Respiratory exam: Present: CTAB - Cardiovascular Cardiovascular exam: Present: RRR - GI/Abdominal GI/Abdominal exam: Present: normal bowel sounds, soft, tenderness (mildly tender in RUQ and epigastric region, improved from admission), no peritoneal signs. Absent: distended, rebound - Neurological Exam Additional comments: Diminished sensation in LE bilaterally, 3-4/5 strength in left leg, minimal strength in right leg - Psychiatric Psychiatric exam: Present: normal affect, normal mood Results - Labs CBC & Chem 7: 10/25/18 08:56 10/25/18 08:56 Labs: Last Result Calcium 8.6 mg/dL (8.6-10.3) 10/25/18 08:56 Troponin I < 0.03 ng/mL (< 0.04) 10/23/18 18:45 Entire Visit Hgb 13.6 g/dL (12.9-16.9) 10/25/18 08:56 Hct 41.5 % (37.5-50.1) 10/25/18 08:56 PT 14.1 Seconds (9.4-12.1) H 10/25/18 03:46 Total Bilirubin 1.9 mg/dL (0.3-1.0) H 10/26/18 10:27 AST 122 Units/L (13-39) H 10/26/18 10:27 ALT > 500 Units/L (7-52) H 10/26/18 10:27 - ABG ABG results: PT/INR, D-dimer PT 14.1 Seconds (9.4-12.1) H 10/25/18 03:46 Consult Discharge Plan - Plan Referrals: Alex Mar MD [Primary Care Provider] - 11/02/18 2:00 pm () <Edgardo Cotto - Last Filed: 10/27/18 05:52> Date of Encounter: 10/26/18 - Time Spent With Patient Total time spent is greater than 50% in coordination of care (as documented) at patient's floor/unit and/or counseling patient: - Constitutional Vitals: Temp Pulse Resp BP Pulse Ox 98.0 F 79 16 128/71 96 10/27/18 03:19 10/27/18 03:19 10/27/18 03:19 10/27/18 03:19 10/27/18 03:19 Results - Labs CBC & Chem 7: 10/25/18 08:56 10/25/18 08:56 Labs: Last Result Calcium 8.6 mg/dL (8.6-10.3) 10/25/18 08:56 Troponin I < 0.03 ng/mL (< 0.04) 10/23/18 18:45 Entire Visit Hgb 13.6 g/dL (12.9-16.9) 10/25/18 08:56 Hct 41.5 % (37.5-50.1) 10/25/18 08:56 PT 14.1 Seconds (9.4-12.1) H 10/25/18 03:46 Total Bilirubin 1.9 mg/dL (0.3-1.0) H 10/26/18 10:27 AST 122 Units/L (13-39) H 10/26/18 10:27 ALT > 500 Units/L (7-52) H 10/26/18 10:27 - ABG ABG results: PT/INR, D-dimer PT 14.1 Seconds (9.4-12.1) H 10/25/18 03:46 - Attending Attestation I examined this patient and my medical decision-making was reviewed with the Resident Physician. I agree with the documented findings, disposition and treatment plan as described except to the extent set forth below.
--- NOTE | 2018-10-26 15:43 | Internal Med Progress Note ---
Hospitalist Progress Note - Encounter Date of Encounter: 10/26/18 Time of Encounter: 11:00 - Subjective Interval History: Patient was seen and examined at bedside. Denies any pain or discomfort at this time, uneventful night. I did review treatment plan with the patient who verbalized understanding. - Exam Vitals: Temp Pulse Resp BP Pulse Ox 97.9 F 98 18 132/77 96 10/26/18 11:15 10/26/18 11:15 10/26/18 11:15 10/26/18 11:15 10/26/18 11:44 Exam: General: Supine in bed, no apparent distress HEENT: atraumatic, pupils perll with EOMI, moist mucous membranes, anicteric sclera Neck: soft, no lymphadenopathy Cardio: regular rate and rhythm without murmurs, rubs, or gallops Respiratory: clear to auscultation bilateral, no crackles, wheeze, or rhonchi Abdomen: Obese, soft, tenderness at RUQ/LUQ, no rebound or rigidity, no guarding Extremities: Healing ulcers of bilateral lower extremities. open lesion of right lateral malleolus with clean and dry dressing, no surround erythema or swelling MSK: significant lower extremity weakness, per patient is at baseline, upper extremity strength 5/5 Neuro: no focal deficits, cranial nerves intact, alert and oriented to person, place, and situation Psych: no suicidal ideation, appropriate mood and affect. 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 Symptoms and UA consistent with UTI Lactate and WBC within normal limits, Afebrile Penile discharge Plan: Continue antibiotic therapy with IV Rocephin Urine culture Straight cath prn for urinary retention GC/chlamydia pcr 10/25/2018 Continue with IV Rocephin-urine culture luminary gram-negative patito GC chlamydia negative 10/26/2018 Urine culture shows 2 organisms organism 1 Escherichia coli sensitive to Rocephin at this time organism to his pending gram-negative patito awaiting sensitivity GC chlamydia is negative (2) DVT prophylaxis Current Visit: Yes Status: Acute Assessment and Plan: SubQ lovenox (3) Ulcer of right heel and midfoot with fat layer exposed Current Visit: No Status: Acute Assessment and Plan: Healing ulcer of right foot, lateral maleolus Plan Consult to wound care 10/25/2018 Continue with current wound care 10/26/2018 stable (4) Transaminitis Current Visit: Yes Status: Acute Assessment and Plan: Generalized abdominal pain and nausea Elevated LFTs, total and direct bilirubin CT abdomen/pelvis without acute findings Plan: Hep a/b negative Hep C pending Order RUQ US Consider GI consultation pending RUQ US and AM labs 10/25/2018 LFTs trending down Hepatitis AB negative Hepatitis C positive had undetectable viral load in June 2018-repeat viral load which is pending-GI has been consulted and appreciate recommendations CT of abdomen and pelvis negative for liver or gallbladder abnormalities 10/26/2018 Seen by GI patient's lab work normalizing he is improving clinically okay to discharge per GI perspective (5) Urinary retention Current Visit: Yes Status: Acute Assessment and Plan: Straight cath prn for urinary retention (6) Penile discharge Current Visit: Yes Status: Acute Assessment and Plan: Patient on Rocephin for UTI Will obtain gonorrhea and chlamydia testing treatment if indicated 10/25/2018 GC Chlamydia negative continue with Rocephin for UTI coverage - Time Spent with Patient Total time spent is greater than 50% in coordination of care (as documented) at patient's floor/unit and/or counseling patient: Internal Medicine: Result - Labs CBC & Chem 7: 10/25/18 08:56 10/25/18 08:56 Labs: Liver Function 10/26/18 Range/Units 10:27 Total Bilirubin 1.9 H (0.3-1.0) mg/dL Direct Bilirubin 1.2 H (0.0-0.2) mg/dL AST 122 H (13-39) Units/L ALT > 500 H (7-52) Units/L Alkaline Phosphatase 159 H (34-104) Units/L Albumin 3.4 L (3.5-5.7) g/dL - ABG Interpretation ABG results: PT/INR, D-dimer PT 14.1 Seconds (9.4-12.1) H 10/25/18 03:46 Consult Discharge Plan - Plan Referrals: Alex Mar MD [Primary Care Provider] - 11/02/18 2:00 pm ()
[2018-10-26] MEDS: BuPROPion XL (24 HR) 150 MG TABLET PO SCH (17:52)
[2018-10-26] MEDS: Ondansetron 4 MG/2 ML VIAL IVP PRN (19:52)
[2018-10-26] MEDS: Ketorolac 15 MG/ML VIAL IVP PRN (22:32)
[2018-10-27] MEDS: *HR* Enoxaparin 40 MG/0.4 ML SYRINGE SQ SCH (05:21)
[2018-10-27] MEDS: cefTRIAXone 1,000 MG in Water for inj. (sterile) 20 ML 10 ML IVP SCH (09:32)
[2018-10-27] MEDS: BuPROPion XL (24 HR) 150 MG TABLET PO SCH (09:33)
[2018-10-27] MEDS: *HR* OxyCODONE/APAP 5/325 TABLET PO PRN ×2 (09:33→15:49)
[2018-10-27] MEDS: Gabapentin 300 MG CAPSULE PO SCH ×2 (09:33→14:29)
[2018-10-27] MEDS: ARIPiprazole 10 MG TABLET PO SCH (09:33)
[2018-10-27] MEDS: Gentamicin Oint 15 GM TUBE TP SCH (10:08)
[2018-10-27 10:59] VITALS: BP 149/82
--- NOTE | 2018-10-27 12:00 | Discharge Summary ---
- NOTES TO OUTPATIENT PROVIDER Notes to Outpatient Provider: Reason with abdominal pain and foul-smelling urine lab work did show elevated LFTs positive screen for hepatitis C was seen by GI- LFTs trending down. Will need to monitor as outpatient if LFTs continue to climb we will need to decrease Wellbutrin. Cymbalta has been decreased to 20 mg daily. He did have a UTI with Escherichia coli as well as Proteus-currently on Keflex 500 every 8 hours for 10 days Orders not resulted at time of discharge: Pending orders 10/23/18 18:45 Culture,Blood [BC] Stat 10/24/18 15:17 Hepatitis C Qnt Reflx Genotype Routine Date of Encounter: 10/27/18 Time of Encounter: 11:56 - Discharge Diagnosis (1) Acute cystitis with hematuria Priority: Primary Status: Acute (2) Ulcer of right heel and midfoot with fat layer exposed Priority: Secondary Status: Acute (3) Transaminitis Priority: Secondary Status: Acute (4) Urinary retention Priority: Secondary Status: Acute (5) Penile discharge Priority: Secondary Status: Acute Hospital course: Mr. 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 Also had pedal dis charge over the past week. Lab evaluation showed normal white count and elevated LFTs and direct bilirubin CT of abdomen and pelvis done acute abnormality UA does suggest a UTI urinalysis was sent and culture did grow 2 organisms Escherichia coli and Proteus mirabillis sensitivity to Rocephin which patient received inpatient. Due to elevated LFTs and hepatitis panel was completed which did show positive hepatitis C. GI was consulted and LFTs were monitored baby did trend downward. Advising 2 continue to monitor as outpatient. I also did reduce patient's Celexa he will have LFTs monitored as outpatient and Wellbutrin will be decreased if LFTs continue to increase patient's child Woodard score is 6 at this time if it goes above 7 and will need to be decreased. Also discuss antibiotic therapy with pharmacy recommending Keflex-10 days. Patient will follow-up with primary care provider. Patient verbalized understanding currently he is hemodynamically stable tolerating oral intake and is ready for discharge Discharge discussed with: patient - Time Spent with Patient Total time spent providing and/or coordinating discharge services: - Discharge Medications Prescriptions: cephALEXin [Keflex] 500 mg PO TID #30 capsule Citalopram [CeleXA] 20 mg PO DAILY #30 tablet Home Medications: Enoxaparin [Lovenox] 40 mg SQ Q12HR PRN 04/20/18 [History] Ibuprofen [Ibu] 800 mg PO TID PRN 04/20/18 [History] Oxybutynin Chloride [Ditropan Xl] 5 mg PO DAILY 04/20/18 [History] Sildenafil Citrate [Revatio] 20 - 40 mg PO DAILY PRN 04/20/18 [History] buPROPion HCl [Zyban] 300 mg PO DAILY #0 05/02/18 [Rx] ARIPiprazole [Abilify] 5 mg PO DAILY 10/24/18 [History] Baclofen [Lioresal] 10 mg PO TID 10/24/18 [History] Gabapentin [Neurontin] 900 mg PO TID 10/24/18 [History] HydrOXYzine Pamoate [Vistaril] 50 mg PO DAILY PRN 10/24/18 [History] HydrOXYzine Pamoate [Vistaril] 50 mg PO QAM 10/24/18 [History] HydrOXYzine Pamoate [Vistaril] 100 mg PO QPM 10/24/18 [History] OxyCODONE/APAP 5/325 [Percocet 5/325 MG] 1 tab PO Q6HR 10/24/18 [History] Citalopram [CeleXA] 20 mg PO DAILY #30 tablet 10/27/18 [Rx] cephALEXin [Keflex] 500 mg PO TID #30 capsule 10/27/18 [Rx] Allergies/Adverse Reactions: Allergy/AdvReac Type Severity Reaction Status Date / Time No Known Allergies Allergy Verified 04/20/18 10:09 Date of admission: 10/23/18 23:31 Primary care physician: Alex Mar MD Consults: 10/24/18 05:32 Consult to Wound Care [CONS] Routine Reason for Consult: Right lower extremity wound Call Completed: No 10/24/18 11:28 Consult to Gastroenterology [CONS] Routine Consulting Provider: Gastroenterology Kay Reason for Consult: elevated ast/alt Call Completed: Yes Discharging clinician: Callie Butler Anticipated date of discharge: 10/27/18 - Constitutional Vitals: Temp Pulse Resp BP Pulse Ox 98.2 F 107 18 149/82 97 10/27/18 10:57 10/27/18 10:57 10/27/18 10:57 10/27/18 10:57 10/27/18 10:57 Exam: General: Supine in bed, no apparent distress HEENT: atraumatic, pupils perll with EOMI, moist mucous membranes, anicteric sclera Neck: soft, no lymphadenopathy Cardio: regular rate and rhythm without murmurs, rubs, or gallops Respiratory: clear to auscultation bilateral, no crackles, wheeze, or rhonchi Abdomen: Obese, soft, tenderness at RUQ/LUQ, no rebound or rigidity, no guarding Extremities: Healing ulcers of bilateral lower extremities. open lesion of right lateral malleolus with clean and dry dressing, no surround erythema or swelling MSK: significant lower extremity weakness, per patient is at baseline, upper extremity strength 5/5 Neuro: no focal deficits, cranial nerves intact, alert and oriented to person, place, and situation Psych: no suicidal ideation, appropriate mood and affect. - Head Head exam: Present: atraumatic, normocephalic - Patient Status Disposition: Home, Self-Care Condition: Fair Functional capacity at discharge: independent ambulation Overall status at discharge: patient is back to baseline - Discharge Instructions Instructions: Urinary Tract Infection in Men (DC) Follow Up With: Alex Mar MD [Primary Care Provider] - 11/02/18 2:00 pm () - Diet and Activity Activity: increase activity as tolerated Diet: advance to your usual diet
[2018-10-28 08:11] LABS: HCV Quant Interpretation DETECTED (Not Detected); HCV Quant Log 4.13 log IU/mL
[2018-10-29 17:42] LABS: HCV Genotype by Sequencing 3A
== END 2018-10-27 16:10 | disposition home or self-care (01) ==
LOC: 3BNU 16:36 → EMEROOARM 16:36 → 3BNU 10-24 01:01
PROVIDERS: ADMIT Family Medicine; ATTEND Family Medicine

== ENCOUNTER 2020-03-31 14:21 | Observation (INO) ==
[2020-03-31] MEDS ORDERED: 0.9 % Sodium Chloride 1,000 ML IVC ONE (14:24)
[2020-03-31] MEDS ORDERED: Isovue-370 500 ML BOTTLE IVP ONE (14:54)
[2020-03-31 14:56] LABS: Basophils # 0.1 K/mcL (0.0-0.2); Basophils % 0.4 %; Eosinophils # 0.3 K/mcL (0.0-0.6); Eosinophils % 2.8 %; Hematocrit 43.4 % (37.5-50.1); Hemoglobin 14.4 g/dL (12.9-16.9); Immature Granulocytes % 0.5 % (0-4); Lymphocytes # 2.2 K/mcL (0.6-4.6); Lymphocytes % 19.1 %; Mean Corpuscular HGB Conc 33.2 g/dL (31.6-35.5); Mean Corpuscular Volume 87.3 fL (83.0-100.0); Mean Platelet Volume 9.8 fL (9.4-12.4); Monocytes # 0.9 K/mcL (0.0-1.3); Monocytes % 7.4 %; Neutrophils # 8.1 K/mcL (1.6-8.9); Platelet Count 310 K/mcL (140-400); Red Blood Count 4.97 M/mcL (4.19-5.50); Red Cell Distribution Width 13.9 % (11.5-14.5); Segmented Neutrophils % 69.8 %; White Blood Count 11.6 K/mcL (4.3-11.1)
[2020-03-31 15:05] LABS: INR 1.1; Prothrombin Time 12.2 Seconds (9.4-12.1)
[2020-03-31 15:08] LABS: Activated Partial Thrombo Time 39.9 Seconds (26.0-36.0)
[2020-03-31 15:16] LABS: Alanine Aminotransferase 12 Units/L (7-52); Albumin 4.1 g/dL (3.5-5.7); Albumin/Globulin Ratio 1.2 (1.1-2.2); Alkaline Phosphatase 97 Units/L (34-104); Aspartate Amino Transferase 12 Units/L (13-39); BUN/Creatinine Ratio 13 (6-26); Bilirubin,Direct 0.1 mg/dL (0.0-0.2); Bilirubin,Indirect 0.3 mg/dL (0.0-1.0); Bilirubin,Total 0.4 mg/dL (0.3-1.0); Blood Urea Nitrogen 11 mg/dL (6-20); Calcium 9.3 mg/dL (8.6-10.3); Carbon Dioxide 27 mEq/L (23-29); Chloride 105 mEq/L (98-107); Globulin 3.4 g/dL (2.4-3.5); Glucose 88 mg/dL (70-105); Lipase 8 Units/L (11-82); Osmolality,Calculated 285 (280-300); Potassium 3.9 mEq/L (3.5-5.1); Sodium 138 mEq/L (136-145); Total Protein 7.5 g/dL (6.4-8.9); Troponin I < 0.03 ng/mL (< 0.04); eGFR For African Americans > 60 (> 60); eGFR For Non-African Americans > 60 (> 60)
[2020-03-31 19:11] LABS: Adenovirus F 40/41 PCR Not detected (Not detect); Astrovirus PCR Not detected (Not detect); C.difficile Toxin A/B Gene PCR Not detected (Not detect); Campylobacter by PCR Not detected (Not detect); Cryptosporidium by PCR Not detected (Not detect); Cyclospora cayetanensis PCR Not detected (Not detect); E. coli O157 by PCR Not detected (Not detect); Entamoeba histolytica PCR Not detected (Not detect); Enteroaggregative E.coli(EAEC) Not detected (Not detect); Enteropathogenic E.coli(EPEC) Not detected (Not detect); Enterotoxigenic E.coli (ETEC) Not detected (Not detect); Giardia lamblia PCR Not detected (Not detect); Norovirus GI/GII PCR Not detected (Not detect); Plesiomonas shigelloides PCR Not detected (Not detect); Rotavirus A PCR Not detected (Not detect); Salmonella PCR Not detected (Not detect); Sapovirus PCR Not detected (Not detect); Shig/EnteroinvasiveE coli EIEC Not detected (Not detect); Shigalike tox-prod E coli STEC Not detected (Not detect); Vibrio PCR Not detected (Not detect); Vibrio cholerae PCR Not detected (Not detect); Yersinia enterocolitica PCR Not detected (Not detect)
[2020-03-31] MEDS ORDERED: Morphine Sulfate 2 MG/ML SYRINGE IVP ONE (19:53)
[2020-03-31 20:07] LABS: Bilirubin,Urine Negative (Negative); Blood,Urine Negative (Negative); Clarity,Urine Clear (Clear); Color,Urine Light-Yellow (Yellow); Glucose,Urine (UA) Normal (Normal); Ketones,Urine Negative (Negative); Leukocyte Esterase,Urine Small (Negative); Nitrite,Urine Positive (Negative); PH,Urine 6.5 pH Units (5.0-8.0); Protein,Urine Negative (Neg-Trace); RBC,Urine 0-3 per hpf (0-3); Specific Gravity,Urine 1.026 (1.010-1.025); Squamous Epithelial Cell,Urine Few per hpf (None-Few); Urobilinogen,Urine Normal (Normal); WBC,Urine 15-30 per hpf (0-3)
[2020-03-31] MEDS ORDERED: 0.9 % Sodium Chloride 1,000 ML IVC SCH (20:15)
[2020-03-31] MEDS ORDERED: Naloxone 0.4 MG/ML INJ IVP PRN (20:15)
[2020-03-31 23:18] LABS: Hematocrit 39.8 % (37.5-50.1); Hemoglobin 13.1 g/dL (12.9-16.9); Mean Corpuscular HGB Conc 32.9 g/dL (31.6-35.5); Mean Corpuscular Hemoglobin 28.9 pg (28.0-33.3); Mean Corpuscular Volume 87.7 fL (83.0-100.0); Mean Platelet Volume 10.1 fL (9.4-12.4); Platelet Count 259 K/mcL (140-400); Red Blood Count 4.54 M/mcL (4.19-5.50); Red Cell Distribution Width 13.7 % (11.5-14.5); White Blood Count 11.9 K/mcL (4.3-11.1)
[2020-04-01] MEDS: cefTRIAXone 1,000 MG in 0.9 % Sodium Chloride Mini Bag 100 ML IVPB SCH (07:58)
[2020-04-01 09:40] LABS: Basophils # 0.1 K/mcL (0.0-0.2); Basophils % 0.5 %; Eosinophils # 0.3 K/mcL (0.0-0.6); Eosinophils % 3.3 %; Hemoglobin 12.9 g/dL (12.9-16.9); Immature Granulocytes % 0.5 % (0-4); Lymphocytes # 2.3 K/mcL (0.6-4.6); Lymphocytes % 25.5 %; Mean Corpuscular HGB Conc 31.5 g/dL (31.6-35.5); Mean Corpuscular Hemoglobin 28.1 pg (28.0-33.3); Mean Corpuscular Volume 89.3 fL (83.0-100.0); Mean Platelet Volume 9.9 fL (9.4-12.4); Monocytes # 0.8 K/mcL (0.0-1.3); Monocytes % 8.5 %; Neutrophils # 5.6 K/mcL (1.6-8.9); Platelet Count 234 K/mcL (140-400); Red Blood Count 4.59 M/mcL (4.19-5.50); Red Cell Distribution Width 13.9 % (11.5-14.5); Segmented Neutrophils % 61.7 %; White Blood Count 9.2 K/mcL (4.3-11.1)
[2020-04-01 09:49] LABS: Activated Partial Thrombo Time 41.3 Seconds (26.0-36.0); INR 1.1
[2020-04-01 09:59] LABS: Alanine Aminotransferase 13 Units/L (7-52); Albumin 3.8 g/dL (3.5-5.7); Albumin/Globulin Ratio 1.3 (1.1-2.2); Alkaline Phosphatase 83 Units/L (34-104); Aspartate Amino Transferase 14 Units/L (13-39); BUN/Creatinine Ratio 12 (6-26); Bilirubin,Total 0.4 mg/dL (0.3-1.0); Blood Urea Nitrogen 11 mg/dL (6-20); Calcium 8.9 mg/dL (8.6-10.3); Carbon Dioxide 25 mEq/L (23-29); Chloride 108 mEq/L (98-107); Glucose 80 mg/dL (70-105); Osmolality,Calculated 286 (280-300); Potassium 3.6 mEq/L (3.5-5.1); Sodium 139 mEq/L (136-145); Total Protein 6.8 g/dL (6.4-8.9); eGFR For African Americans > 60 (> 60); eGFR For Non-African Americans > 60 (> 60)
[2020-04-01] MEDS ORDERED: Baclofen 10 MG TABLET PO PRN (12:06)
[2020-04-01] MEDS: Gabapentin 300 MG CAPSULE PO SCH ×2 (16:44→20:49)
[2020-04-02 07:31] VITALS: BP 143/76
[2020-04-02 07:51] LABS: Basophils % 0.3 %; Eosinophils # 0.3 K/mcL (0.0-0.6); Hematocrit 42.6 % (37.5-50.1); Hemoglobin 13.8 g/dL (12.9-16.9); Immature Granulocytes % 0.5 % (0-4); Lymphocytes # 1.8 K/mcL (0.6-4.6); Lymphocytes % 18.6 %; Mean Corpuscular HGB Conc 32.4 g/dL (31.6-35.5); Mean Corpuscular Hemoglobin 28.6 pg (28.0-33.3); Mean Corpuscular Volume 88.4 fL (83.0-100.0); Mean Platelet Volume 10.2 fL (9.4-12.4); Monocytes # 0.8 K/mcL (0.0-1.3); Monocytes % 7.8 %; Neutrophils # 6.9 K/mcL (1.6-8.9); Platelet Count 274 K/mcL (140-400); Red Blood Count 4.82 M/mcL (4.19-5.50); Red Cell Distribution Width 13.6 % (11.5-14.5); Segmented Neutrophils % 69.8 %; White Blood Count 9.9 K/mcL (4.3-11.1)
[2020-04-02 07:52] LABS: BUN/Creatinine Ratio 11 (6-26); Blood Urea Nitrogen 9 mg/dL (6-20); Calcium 8.9 mg/dL (8.6-10.3); Carbon Dioxide 26 mEq/L (23-29); Chloride 105 mEq/L (98-107); Glucose 90 mg/dL (70-105); Osmolality,Calculated 284 (280-300); Potassium 3.7 mEq/L (3.5-5.1); Sodium 138 mEq/L (136-145); eGFR For African Americans > 60 (> 60); eGFR For Non-African Americans > 60 (> 60)
[2020-04-02] MEDS: cefTRIAXone 1,000 MG in 0.9 % Sodium Chloride Mini Bag 100 ML IVPB SCH (08:17)
[2020-04-02] MEDS: Gabapentin 300 MG CAPSULE PO SCH (08:18)
== END 2020-04-02 11:21 | disposition home or self-care (01) ==
LOC: 3BNU 14:21 → EMEROOARM 14:21 → SUATTDRO 20:34 → 3BNU 21:29
PROVIDERS: ADMIT Internal Medicine; ATTEND Internal Medicine